=== PATIENT | female | born 1980 | race American Indian/Alaskan Native ===

== ENCOUNTER 2019-02-24 18:57 | Emergency (ER) | payer OTHER ==
--- NOTE | 2019-02-24 19:26 | Emergency Department Report ---
Blank Doc - Documentation Documentation: This is a 38-year-old female that presents with generalized rash to right side and upper arm. This initial assessment/diagnostic orders/clinical plan/treatment(s) is/are subject to change based on patient's health status, clinical progression and re- assessment by fellow clinical providers in the ED. Further treatment and workup at subsequent clinical providers discretion. Patient/guardians urged not to elope from the ED as their condition may be serious if not clinically assessed and managed. Initial orders include: 1- Patient sent to [facility] for further evaluation and treatment
[2019-02-24 19:27] VITALS: BP 111/62
[2019-02-24] MEDS ORDERED: DELTASONE PO ONE (20:39)
[2019-02-24] MEDS ORDERED: BENADRYL IM ONE (20:39)
[2019-02-24] MEDS ORDERED: PEPCID PO ONE (20:45)
--- NOTE | 2019-02-24 20:48 | Emergency Department Report ---
ED General Adult HPI - General Chief complaint: Allergic Reaction Stated complaint: HIVES/ARMS/ITCHING/BURNING Time Seen by Provider: 02/24/19 19:25 Source: patient Mode of arrival: Ambulatory Limitations: No Limitations - History of Present Illness Initial comments: 38-year-old -Thai female presents to the emergency room for rash that started this morning. Patient stated it started on her right inner arm and now has spread to her right hip. She reports that it itches very bad. She denies trying any new foods or detergents or perfumes no new lotions no new soaps or anything she can recall is sleeping on the couch. She does admit to having a 2-year-old. Patient reports she use some [id number] hydrocortisone cream which she reports did not help much. Patient denies any shortness of breathing any chest pain A difficulty swallowing. Location: right, upper extremity, lower extremity Radiation: non-radiation Severity scale (0 -10): 6 Quality: other (pruritic) Improves with: none Worsens with: none Associated Symptoms: denies other symptoms. denies: nausea/vomiting Treatments Prior to Arrival: none - Related Data Previous Rx's Medication Instructions Recorded Last Taken Type Famotidine [Pepcid] 20 mg PO BID #10 tablet 02/24/19 Unknown Rx diphenhydrAMINE [Benadryl CAP] 25 mg PO Q8HR PRN #15 capsule 02/24/19 Unknown Rx predniSONE [Deltasone] 40 mg PO QDAY #10 tab 02/24/19 Unknown Rx Allergies Allergy/AdvReac Type Severity Reaction Status Date / Time No Known Allergies Allergy Unverified 02/24/19 19:00 ED Review of Systems ROS: Stated complaint: HIVES/ARMS/ITCHING/BURNING Other details as noted in HPI Comment: All other systems reviewed and negative Skin: rash, pruritus ED Past Medical Hx - Past Medical History Previous Medical History?: No - Surgical History Additional Surgical History: C SECTION TUMMY TUCK LIPO - Social History Smoking Status: Never Smoker Substance Use Type: None - Medications Home Medications: Home Medications Medication Instructions Recorded Confirmed Last Taken Type Famotidine [Pepcid] 20 mg PO BID #10 tablet 02/24/19 Unknown Rx diphenhydrAMINE [Benadryl CAP] 25 mg PO Q8HR PRN #15 capsule 05/30/19 Unknown Rx predniSONE [Deltasone] 40 mg PO QDAY #10 tab 02/24/19 Unknown Rx ED Physical Exam - General Limitations: No Limitations General appearance: alert, in no apparent distress - Head Head exam: Present: atraumatic, normocephalic - Eye Eye exam: Present: normal appearance, PERRL - ENT ENT exam: Present: mucous membranes moist - Neck Neck exam: Present: normal inspection - Respiratory Respiratory exam: Present: normal lung sounds bilaterally. Absent: respiratory distress - Cardiovascular Cardiovascular Exam: Present: regular rate, normal rhythm. Absent: systolic murmur, diastolic murmur, rubs, gallop - GI/Abdominal GI/Abdominal exam: Present: soft, normal bowel sounds - Neurological Exam Neurological exam: Present: alert, oriented X3, normal gait - Psychiatric Psychiatric exam: Present: normal affect, normal mood - Skin Skin exam: Present: urticaria ED Course Vital Signs 02/24/19 19:20 Temperature 98.0 F Pulse Rate 85 Respiratory 18 Rate Blood Pressure 111/62 O2 Sat by Pulse 100 Oximetry ED Medical Decision Making - Medical Decision Making 38-year-old -Thai female comes in for an allergic reaction rash. Patient will be given prednisone 60 mg by mouth Benadryl 50 mg IM and Pepcid 40 mg by mouth. Patient will be discharged home on a Medrol Dosepak. Pepcid 20 mg twice a day for 5 days and Benadryl 25 mg every 8 hours for 3 days. Patient is instructed to follow up with her primary care provider if her symptoms persist or gets worse. Also discussed the patient she may need to have allergy testing and this can be done by an ground hand or her primary care provider. Critical care attestation.: If time is entered above; I have spent that time in minutes in the direct care of this critically ill patient, excluding procedure time. ED Disposition Clinical Impression: Urticaria Allergic reaction Qualifiers: Encounter type: initial encounter Qualified Code(s): T78.40XA - Allergy, unspecified, initial encounter Disposition: TO HOME OR SELFCARE Is pt being admited?: No Does the pt Need Aspirin: No Condition: Stable Instructions: Urticaria (ED) Additional Instructions: Please take medications as prescribed. Please avoid heavy machinery while taking Benadryl. If his symptoms persist please follow up with her primary care provider and/or an ground hand. Prescriptions: diphenhydrAMINE [Benadryl CAP] 25 mg PO Q8HR PRN #15 capsule PRN Reason: Itching predniSONE [Deltasone] 40 mg PO QDAY #10 tab Famotidine [Pepcid] 20 mg PO BID #10 tablet Referrals: PETRA CHAMBERS MD [Primary Care Provider] - 3-5 Days Forms: Work/School Release Form(ED)
== END 2019-02-24 22:10 | disposition home or self-care (01) ==
LOC: ED 18:57
DX: T78.40XA Allergy, unspecified, initial encounter (principal); L50.9 Urticaria, unspecified; X58.XXXA Exposure to other specified factors, initial encounter
CPT/HCPCS: 96372; 99282; J1200; J7512